=== PATIENT | female | born 1985 | race Asian ===

== ENCOUNTER 2016-08-27 08:38 | Outpatient (CLI) | payer OTHER, SELFPAY ==
[~2016-08-27] VITALS: Ht 152.4 cm; Wt 65.0 kg
[2016-08-27] MEDS ORDERED: PRENTAB9 PO (08:54)
[2016-08-27 08:56] VITALS: BP 126/87
== END 2016-08-27 10:00 | disposition home or self-care (01) ==
LOC: M LDO 08:38
PROVIDERS: ATTEND Student in an Organized Health Care Education/Training Program
DX: O47.1 False labor at or after 37 completed weeks of gestation (principal); Z3A.40 40 weeks gestation of pregnancy

== ENCOUNTER 2016-08-27 21:27 | Inpatient (IN) | payer OTHER ==
[~2016-08-27] VITALS: Ht 152.4 cm; Wt 65.0 kg
[~2016-08-27 21:27] MED LIST: PRENTAB9 PO
[2016-08-27 21:40] VITALS: BP 134/72
[2016-08-27] MEDS ORDERED: PENICILLIN G POTASSIUM IV 5 MU in D5W MINI-BAG PLUS 100 ML IV STA ×2 (21:50→23:33)
[2016-08-27] MEDS ORDERED: LACTATED RINGER'S 1000 ML IV STA (21:50)
[2016-08-27 22:28] LABS: MEAN CORPUSCULAR HEMOGLOBIN 31.2 pg (27.0-33.0); MEAN CORPUSCULAR HGB CONC 33.1 g/dl (32.0-36.5); MEAN CORPUSCULAR VOLUME 94.4 fl (80.0-96.0); RED CELL DISTRIBUTION WIDTH 13.7 % (11.5-14.5); WHITE BLOOD COUNT 13.5 K/mm3 (4.0-10.0)
[2016-08-27 23:27] VITALS: BP 149/81
[2016-08-27] MEDS ORDERED: FENTANYL 2MCG/ML ROPIVACAINE 0.2% NACL 250 ML CADD As Ordered ONE (23:33)
[2016-08-27 23:47] VITALS: BP 150/86
--- NOTE | 2016-08-27 23:48 | HPEPDOC ---
Obstetrical History & Physical General Date of Admission Aug 27, 2016 at 21:46 History of Present Illness 30 y/o with possible LOF at 1600 today./ Ctx's becoming more paniful and reg currently. Brought in by the RN after dicussion with me by phone. Was 3-4 cm and her pad immediately turned the nitrazine papr blue. HAS HAD A FEW LEAKS SINCE ADMISSION, SMALL AMT. 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 Plan currently is for a LEEP a few months after delivery. -Rubella Non-Imm Chief Complaint: Contractions, term, LOF, term Care Care: Good Care Dating Final EDC by: LMP, 1st trimester (US) EGA at Admission: 40+1 Past Medical History Past Obstetrical History : Past Obstetrical History: Primgravida Past Medical History Medical History denies Surgical History: Other (none) Family History Significant Family History: No pertinent family hx Family History denies Social History Marital Status: Family situation: Spouse/partner home Psychosocial History: No pertinent psych hx * Smoker: non-smoker Alcohol: denies Drugs: denies Abuse Violence Screening Have you been hit/kicked/slapp: No Have you been sexually assault: No Imunizations Tdap status: current ([id number]) Influenza Status: declined Allergies Coded Allergies: No Known Allergies (Unverified , 08/27/16) Medications Scheduled Multivitamins/ ( 27-0.8 mg) 1 Tab Tab 1 TAB PO DAILY Physical Examination Physical Examination GENERAL: Alert and oriented times three. ABDOMEN: Gravid and non-tender to touch. FETUS: Is vertex (VTX) by sterile vaginal examination () EXTREMITIES: No edema. No clonus. Laboratory Data 24H [facility]S Laboratory Tests 2 08/27/16 22:13: CBC/BMP Laboratory Tests 08/27/16 22:13 Red Blood Count 3.98 L, Mean Corpuscular Volume 94.4, Mean Corpuscular Hemoglobin 31.2, Mean Corpuscular Hemoglobin Concent 33.1, Red Cell Distribution Width 13.7 Urine Culture: No Growth Pertinent Laboratoy Data Blood Type: A+ RBC Antibody Screen: Positive HIV: Negative Hepatitis B: Negative Hepatitis C: Unknown Rapid Plasma Reagin: Immune Rubella: Nonreactive Varicella: Immune Chlamydia/Gonorrhea: Negative Group B Streptococcus: Positive Quad Screen Test: Negative Cystic Fibrosis: Negative Glucose Tolerance Test: 131 Anatomy Ultrasound Ultrasound Date: Apr 10, 2016 Placenta Location: Anterior Normal Anatomy: Yes Placenta Previa: No Other Ultrasounds Other Ultrasounds [id number] for grth scan by VERA Cho showed 48%ile Steroid Therapy Steroid Therapy: No Vaginal Examination Dilation: 4 cm Effacement: 80+% Station: -1, 0 Cervical Consistency: Soft Cervical Position: Anterior Presentation: Cephalic presentation Position: Vertex (occiput) Assessment Heart Rate (FHR): 141 Variability: Moderate Decelerations: Variable (random) Tocometer Contractions: Yes Frequency: regular Duration: greater than 60 seconds Strength: palpated as moderate (Desires an epidural, please let her know.) Assessment/Plan Assessment Very likely SROM at 1600 today, regardless is in labor and with her admit check just now was 4/80/-1/vtx well applied and hair felt. SROM/Active labor. GBS pos, has received her first dose PCN 1 hr ago. Plan Admit and orient Cook Relief and consent Group B Streptococcus (GBS) pos. PCN started Labs and intravenous (IV) per unit protocol Counseled on Pitocin and induction of labor (IOL) Epidural OK on demand Anticipate normal spontaneous delivery () C-S as appropriate MMR with discharge LEEP 1-2 months after delivery Sessions SESSIONS,VIVI Onofre MD Aug 27, 2016 23:48 SESSIONSVIVI MD Aug 27, 2016 23:48
[2016-08-27 23:58] VITALS: BP 144/81
[2016-08-27 23:59] VITALS: BP 146/83
[2016-08-28] VITALS (41 sets, daily range): BP systolic 106–154; BP diastolic 55–96
[2016-08-28] MEDS ORDERED: ePHEDrine SULFATE 25 MG/5 ML(5MG/ML) SYRINGE IV PRN (00:15)
[2016-08-28] MEDS ORDERED: FENTANYL/ROPIVACAINE/NACL CADD 250 ML EPIDURAL SCH (00:15)
[2016-08-28] MEDS ORDERED: LACTATED RINGER'S 1000 ML IV PRN (00:15)
[2016-08-28] MEDS ORDERED: NALOXONE INJ 0.4 MG/1 ML VIAL (J2310) IV PRN (00:15)
[2016-08-28] MEDS ORDERED: EPIDURAL/PCA KEYS XX PRN (00:15)
[2016-08-28] MEDS ORDERED: ONDANSETRON 4MG/2ML VIAL (J2405) IV PRN ×2 (00:15→12:15)
[2016-08-28] MEDS ORDERED: REFRIGERATOR IV KEYS XX PRN (00:15)
[2016-08-28] MEDS ORDERED: diphenhydrAMINE INJ 50MG/ML VIAL (J1200) IV PRN ×2 (00:15→12:15)
[2016-08-28] MEDS ORDERED: EPIDURAL COMMENT XX SCH (00:15)
[2016-08-28] MEDS: PENICILLIN G POTASSIUM IV 2.5 MU in D5W 100 ML IV SCH ×2 (02:10→06:20)
[2016-08-28] MEDS ORDERED: PENICILLIN G POTASSIUM IV 2.5 MU in D5W 100 ML IV SCH (03:45)
[2016-08-28] MEDS ORDERED: LR 1,000 ML IV SCH ×2 (03:54→12:15)
[2016-08-28] MEDS ORDERED: OXYTOCIN 30 UNITS IN 0.9% NaCl 500ML IV BAG (J2590) As Ordered ONE (03:57)
--- NOTE | 2016-08-28 03:58 | IPNPDOC ---
Text Note Date of Service The patient was seen on 08/28/16. NOTE NOw s/p epidural and second dose IV abx for GBS prophy. Pr RN, NST is reassuring with mod flor and no further flor decels noted as was present when I met the pt. Ctx's also spacing out now q4-6 min. Will start ptocin and check in ~2 hrs, sooner prn. Sessions VS,Tony, I+O VSTony I+O Laboratory Tests 08/27/16 22:13 Red Blood Count 3.98 L, Mean Corpuscular Volume 94.4, Mean Corpuscular Hemoglobin 31.2, Mean Corpuscular Hemoglobin Concent 33.1, Red Cell Distribution Width 13.7 SESSIONS,VIVI Onofre MD Aug 28, 2016 03:58
[2016-08-28] MEDS ORDERED: OXYTOCIN DRIP 30 UNITS in APPROPRIATE DILUENT 1 EA IV SCH (04:00)
--- NOTE | 2016-08-28 06:09 | IPNPDOC ---
Text Note Date of Service The patient was seen on 08/28/16. NOTE Now pit at 6 mu/min Pt comfortable Cx 5/80/-1 but anteriorly has a significantly swollen area from 11-1 that was not present earlier. Cx still stretches to 6-7 however. Concerning for possible arrest with the swollen cx and minimal change, but needs an IUPC to best manage her pitocin and hopefully achieve adequate MVU's prior to calling an arrest of diation if that occurs. All d/w pt. Plan to incr the pitocin until adeq MVU's as long as baby tolerates. Sessions VS,Tony, I+O VSTony, I+O Laboratory Tests 08/27/16 22:13 Red Blood Count 3.98 L, Mean Corpuscular Volume 94.4, Mean Corpuscular Hemoglobin 31.2, Mean Corpuscular Hemoglobin Concent 33.1, Red Cell Distribution Width 13.7 SESSIONS,VIVI Onofre MD Aug 28, 2016 06:09
[2016-08-28] MEDS ORDERED: ACETAMINOPHEN TAB 650MG DOSE (2X325MG) PO ONE (08:15)
[2016-08-28] MEDS: AMPICILLIN SOD/SULBACTAM SOD 3 GM in D5W MINI-BAG PLUS 100 ML IV SCH ×3 (08:17→20:10)
[2016-08-28] MEDS: LR 1,000 ML IV SCH ×2 (08:27→13:50)
[2016-08-28] MEDS: DOCUSATE SODIUM 100 MG CAP PO SCH ×2 (09:00→20:10)
[2016-08-28] MEDS: PRENATAL VITAMIN TAB PO SCH (09:00)
[2016-08-28] MEDS ORDERED: BICITRA 30ML SOLN UDC As Ordered ONE (10:22)
[2016-08-28] MEDS ORDERED: ceFAZolin 2 GM/D5W 50 ML IV BAG (J0690) As Ordered ONE (10:22)
[2016-08-28] MEDS ORDERED: BICITRA 30ML SOLN UDC PO ONE (10:30)
[2016-08-28] MEDS ORDERED: fentaNYL 100 MCG/2 ML INJECTION (J3010) As Ordered ONE (11:00)
[2016-08-28] MEDS ORDERED: OXYTOCIN INJ 10 UNITS/ML VIAL (J2590) As Ordered ONE (11:00)
[2016-08-28] MEDS ORDERED: LIDOCAINE 2% W/EPIN INJ 20ML **PRES FREE As Ordered ONE (11:01)
[2016-08-28] MEDS ORDERED: ONDANSETRON 4MG/2ML VIAL (J2405) As Ordered ONE (11:07)
[2016-08-28] MEDS ORDERED: KETOROLAC 60 MG/2 ML VIAL (J1885) As Ordered ONE (11:08)
[2016-08-28 11:23] LABS: CORD GAS ABE A -3.2; CORD GAS HCO3 A 26.9 MEQ/L; CORD GAS O2 SAT A 36.6 %; CORD GAS PH A 7.191 UNITS; CORD GAS PO2 A 19.8 mmHg; CORD GAS SBC A 20.4 MEQ/L; CORD GAS TCO2 A 29.2 MEQ/L
[2016-08-28 11:24] LABS: CORD GAS ABE V -3.4; CORD GAS HCO3 V 21.8 MEQ/L; CORD GAS O2 SAT V 91.2 %; CORD GAS PH V 7.354 UNITS; CORD GAS PO2 V 48.7 mmHg; CORD GAS SBC V 21.5 MEQ/L
[2016-08-28] MEDS ORDERED: PROMETHAZINE 25 MG TAB PO PRN (11:30)
[2016-08-28] MEDS ORDERED: RHOGAM 300 MCG (1500 IU) INJ (J2790) IM SCH (11:30)
[2016-08-28] MEDS ORDERED: PERCOCET 5MG/325MG TAB PO PRN ×2 (11:30→12:15)
[2016-08-28] MEDS ORDERED: MEASLES,MUMPS,RUBELLA VACCINE INJ (MMR-II) (90707) SC SCH (11:30)
[2016-08-28] MEDS ORDERED: MEPERIDINE INJ 25 MG/ML VIAL (J2175) IV PRN (12:15)
[2016-08-28] MEDS ORDERED: fentaNYL 100 MCG/2 ML INJECTION (J3010) IV PRN (12:15)
[2016-08-28] MEDS ORDERED: NALBUPHINE HCL 10 MG/ML AMP (J2300) IV PRN (12:15)
[2016-08-28] MEDS ORDERED: HYDROmorphone HCL 1 MG/ML SYRINGE (J1170) IV PRN (12:15)
[2016-08-28] MEDS ORDERED: METOCLOPRAMIDE INJ 10MG/2ML VIAL (J2765) IV PRN (12:15)
--- NOTE | 2016-08-28 14:00 | RO ---
DATE OF PROCEDURE: 08/28/2016 PREPROCEDURE DIAGNOSIS: 1) Term with PROM 2) NRFHR 3) Remote from delivery 4) Chorioamnionitis POSTPROCEDURE DIAGNOSIS: CARA PROCEDURE: Primary Low Transverse Section SURGEON: Dr. Steve Wheeler. STOCKLAYER: Dr Corine Farley ANESTHESIA: Epidural ANESTHESIA: IMPROVEMENT INTERN ESTIMATED BLOOD LOSS: 600ml Patient is a 30-year-old G1, P0 who was admitted yesterday to labor and delivery on 08/27/2016 with premature rupture of membranes, noted this morning to be approximately 5/80/-1 with IUPC placed for better assessment of uterine contractions while on Pitocin. Contacted by window installation subcontractor, primary on labor and delivery this day, in regards to concern with category II tracing. Reviewing tracing and agreed category II tracing with periods of minimal variability, late decelerations, early decelerations. Also had recently had Pitocin decreased to half previous dose. Cervical exam at this time unchanged from exam at 0600. A long discussion with patient in regards to risks/benefits/alternatives/ indications to continuing augmentation for rupture of membranes with 1) Chorioamnionitis, 2) Remote from delivery, 3) Category II tracing to include periods of minimal variability. Decision made to proceed with section indication of remote from delivery as well as non-assuring heart rate tracing. Anesthesia notified, nursing notified, Pitocin turned off. Patient taken to the OR. The risks, benefits, alternatives and indications of the procedure were reviewed with patient and informed consent was obtained. Patient was taken to the operating room where previous epidural was noted to be adequate. She was then prepped and draped in normal sterile fashion and a Messina catheter was placed without incident. A time out was performed as well as heart rate tones in the OR noted to be in the 160. A Pfannenstiel skin incision was made with scalpel and carried through to the underlying layer of fascia. The fascia was incised in the midline and extended laterally with Donnelly scissors. The superior aspect of the fascial incision was grasped with Elodia clamps times two , tented up and the underling rectus muscle dissected out bluntly as well as with the assistance of Bovie cautery. In a similar fashion, the inferior aspect of the fascia was grasped with Elodia clamps times two and the underlying rectus muscle was dissected off again bluntly as well as with Donnelly scissors. The rectus muscle was then in the midline, the peritoneum was identified, tented up and entered digitally. The peritoneal incision was then extended horizontally and superiorly, bluntly as well as with Bovie with good visualization of the bladder. A vesicular uterine peritoneum was identified and found to be well inferior of the hysterotomy site. It was identified, grasped, picked up and entered sharply with Metzenbaum scissors and extended laterally. A bladder flap was then created digitally. Next the lower uterine segment was incised in a transverse fashion with a scalpel. The amniotic sac was artificially ruptured productive of clear fluid. The incision was extended manually in a superior lateral fashion. The bladder blade was removed and the infant was found to be in cephalic presentation and delivered through the hysterotomy without difficulty. Cord was clamped times two, cut, and handed off to the awaiting pediatric team at the [facility]. Cord gases were then obtained and sent down by nursing. After a segment of cord was removed, the placenta was then removed without complication with gentle retraction on the umbilical cord intact. The uterus was then exteriorized and cleared of all clots and debris. The hysterotomy was then closed in a running locked fashion with #0 Monocryl with a second #0 Monocryl used in a horizontal imbrication without incident. The entire hysterotomy was noted to be closed and hemostatic. The ovaries bilaterally as well as bilateral fallopian tubes were noted to be normal without abnormalities. The posterior cul-de-sac was then irrigated with warm saline and the uterus was re-introduced into the abdomen. Again, the hysterotomy was observed for approximately 30 seconds with no noted bleeding and no other abnormalities appreciated. The fascia was then reapproximated with #0 Vicryl in a running fashion. Subcutaneous layer was closed with #3-0 Vicryl in three single interrupted sutures. The skin was then closed with #4-0 Monocryl in a subcuticular fashion. Incision was then covered with half inch Steri-Strips and a pressure dressing with Medipore tape. At the completion of the case, bimanual exam performed with good uterine tone and minimal vaginal bleeding. Patient tolerated the procedure well. Sponge, lap and needle counts correct times three. The patient was taken to the recovery room in stable condition. for delivery noted to be 8 and 9. Weight was 3958. Delivery time was 1056. Estimated blood loss noted to be 600 mL. Urine noted to be 100 mL, IV fluids 2000 mL of isotonic fluid. 2 grams Ancef given prior to skin incision. Jo Wheeler OB-SAP BUSINESS ANALYST MTDD
[2016-08-28] MEDS: KETOROLAC 30 MG/ML VIAL (J1885) IV SCH (17:17)
[2016-08-28] MEDS: PERCOCET 5MG/325MG TAB PO PRN (20:10)
[2016-08-29] MEDS: KETOROLAC 30 MG/ML VIAL (J1885) IV SCH ×3 (00:36→10:52)
[2016-08-29] MEDS: AMPICILLIN SOD/SULBACTAM SOD 3 GM in D5W MINI-BAG PLUS 100 ML IV SCH ×2 (01:14→08:30)
[2016-08-29] MEDS: PERCOCET 5MG/325MG TAB PO PRN ×4 (01:15→19:47)
[2016-08-29 01:24] VITALS: BP 120/66
[2016-08-29 05:56] VITALS: BP 114/70
[2016-08-29 07:09] LABS: MEAN CORPUSCULAR HEMOGLOBIN 31.7 pg (27.0-33.0); MEAN CORPUSCULAR HGB CONC 33.2 g/dl (32.0-36.5); MEAN CORPUSCULAR VOLUME 95.7 fl (80.0-96.0); RED CELL DISTRIBUTION WIDTH 13.7 % (11.5-14.5); WHITE BLOOD COUNT 13.4 K/mm3 (4.0-10.0)
[2016-08-29] MEDS: DOCUSATE SODIUM 100 MG CAP PO SCH ×2 (07:33→19:47)
[2016-08-29] MEDS: PRENATAL VITAMIN TAB PO SCH (07:35)
[2016-08-29 10:51] VITALS: BP 114/67
[2016-08-29 13:26] LABS: BASO % 0.2 % (0.0-1.0); EOS # 0.2 K/mm3 (0.0-0.50); EOS % 1.6 % (0.0-3.0); LARGE UNSTAINED CELL # 0.2 K/mm3 (0.0-0.4); LARGE UNSTAINED CELL % 1.1 % (0.0-4.0); LYMPH # 1.7 K/mm3 (1.5-4.5); LYMPH % 11.8 % (24.0-44.0); MEAN CORPUSCULAR HEMOGLOBIN 31.6 pg (27.0-33.0); MEAN CORPUSCULAR HGB CONC 32.9 g/dl (32.0-36.5); MEAN CORPUSCULAR VOLUME 96.2 fl (80.0-96.0); MONO # 0.6 K/mm3 (0.0-0.8); MONO % 4.4 % (0.0-5.0); NEUTROPHILS # 10.9 K/mm3 (1.8-7.7); NEUTROPHILS % 80.9 % (36.0-66.0); PLATELET COUNT, AUTOMATED 172 k/mm3 (150-450); RED CELL DISTRIBUTION WIDTH 13.6 % (11.5-14.5); WHITE BLOOD COUNT 13.4 K/mm3 (4.0-10.0)
[2016-08-29 14:29] VITALS: BP 135/77
[2016-08-29 18:32] VITALS: BP 129/86
[2016-08-29] MEDS ORDERED: IBUPROFEN 400 MG TAB PO SCH (19:00)
[2016-08-29 22:42] VITALS: BP 127/83
[2016-08-30] MEDS: PERCOCET 5MG/325MG TAB PO PRN ×2 (00:18→08:09)
[2016-08-30] MEDS: IBUPROFEN 800 MG TAB PO SCH ×2 (03:29→11:00)
[2016-08-30 05:53] VITALS: BP 128/68
[2016-08-30] MEDS ORDERED: IBUP-1114 PO ×2 (07:52→08:05)
[2016-08-30] MEDS ORDERED: OXYC1TAB23 PO ×2 (07:52→07:53)
[2016-08-30] MEDS ORDERED: COLA100C PO ×2 (07:53→08:04)
[2016-08-30] MEDS: PRENATAL VITAMIN TAB PO SCH (08:09)
[2016-08-30] MEDS: DOCUSATE SODIUM 100 MG CAP PO SCH (08:10)
--- NOTE | 2016-08-31 06:41 | DSES ---
DATE OF ADMISSION: 08/27/2016 DATE OF DISCHARGE: 08/30/2016 (now discharged) This lady is a 30-year-old, 1, now para 1, admitted with spontaneous rupture of membranes, group B streptococcus (GBS) positive, and active contractions. She had a primary section for non-reassuring heart strip, remote from delivery, chorioamnionitis, delivered a female infant, 8 pounds 12 ounces, 3958 grams, scores of 8 and 9 and one and five minutes, respectively. Arterial blood gas was 7.19, base excess -3.2, venous pH 7.35, base excess -3.4. Her admitting hemoglobin was 12.4, hematocrit 37.5, and platelets were 189. Discharge hemoglobin was 8.7, hematocrit 26.6, and platelets 172. She still has an elevated white count of 13.4. VITAL SIGNS: Today, her blood pressure is 128/68, respirations are 18, pulse is 89, and temperature 97.8. ON EXAMINATION: She is normocephalic, atraumatic. Neck: Full range of motions. Pupils equal and reactive to light. Distal pulses symmetric. No evidence of deep venous thrombosis (DVT), pulmonary embolism (PE), or superficial phlebitis. No wheezes or rhonchi. Chest is clear bilaterally to bases. Abdomen is soft. Uterus 2 below. Lochia is moderate. Incision is clean and dry. No rashes or lesions or pruritus. No arthralgia or myalgia. No complaints of cough, wheezes, shortness of breath, or dyspnea on exertion. No chest pain. No bruising. No bleeding. Neurologically complete. No incontinence. No nausea, vomiting, diarrhea, or constipation. No other issues. GYNECOLOGICAL: She has on Pap and biopsy and will have a loop electrosurgical excision procedure (LEEP) significantly remote from . She does not smoke or drink or abuse drugs. She is . There is no domestic violence. IN SUMMARY: We have a term gestation delivered by primary section because of non-reassuring heart strip. She is going to be made a boarder, as baby is in intensive care unit (NICU) because of her chorioamnionitis, and the patient was given medications on discharge.
== END 2016-08-30 15:45 | disposition home or self-care (01) | DRG 766 ==
LOC: M LDO 21:27 → M LDI 21:46 → M OBS 08-28 13:21
PROVIDERS: ADMIT Obstetrics & Gynecology; ATTEND Obstetrics & Gynecology
PROC: 10D00Z1 Extraction of Products of Conception, Low, Open Approach (ICD-10-PCS; principal; 2016-08-28 10:36)
DX: O41.1230 Chorioamnionitis, third trimester, not applicable or unspecified (principal); O99.824 Streptococcus B carrier state complicating childbirth; Z37.0 Single live birth; O76 Abnormality in fetal heart rate and rhythm complicating labor and delivery; O62.0 Primary inadequate contractions; Z3A.39 39 weeks gestation of pregnancy